=== PATIENT | male | born 1995 | race Caucasian/White ===

== ENCOUNTER 2020-03-23 10:46 | Emergency (ER) | payer MEDICAID ==
[~2020-03-23] VITALS: Ht 172.7 cm; Wt 90.0 kg
[2020-03-23] MEDS ORDERED: LORazepam 1 MG tablet PO ONE ×3 (11:15→20:30)
[2020-03-23 11:34] LABS: BASOPHILS % (AUTO) 0.6 % (0-1); EOSINOPHILS # (AUTO) 0.1 X10'3 (0-0.9); EOSINOPHILS % (AUTO) 1.8 % (0-6); HEMATOCRIT 45.5 % (42.0-52.0); HEMOGLOBIN 15.7 g/dl (14.0-17.9); LYMPHOCYTES # (AUTO) 1.8 X10'3 (1.1-4.8); LYMPHOCYTES % (AUTO) 24.9 % (21-51); MEAN CORPUSCULAR HEMOGLOBIN 29.8 PG (27.0-31.0); MEAN CORPUSCULAR HGB CONC 34.4 g/dL (33.0-36.5); MEAN CORPUSCULAR VOLUME 86.6 FL (78-98); MEAN PLATELET VOLUME 7.7 FL (7.4-10.4); MONOCYTES # (AUTO) 0.4 X10'3 (0-0.9); MONOCYTES % (AUTO) 5.8 % (2-12); NEUTROPHILS # (AUTO) 4.8 X10'3 (1.8-7.7); NEUTROPHILS % (AUTO) 66.9 % (42-75); PLATELET COUNT 250 X10'3 (140-440); RED BLOOD COUNT 5.25 X10'6 (4.70-6.10); RED CELL DISTRIBUTION WIDTH 13.1 % (11.5-14.5); WHITE BLOOD COUNT 7.2 X10'3 (4.5-11.0)
[2020-03-23 11:48] LABS: ALANINE AMINOTRANSFERASE 34 U/L (12-78); ALBUMIN 4.3 G/DL (3.4-5.0); ALBUMIN/GLOBULIN RATIO 1.4 (1.1-1.5); ALKALINE PHOSPHATASE 66 IU/L (46-116); ANION GAP 8 (8-16); ASPARTATE AMINO TRANSFERASE 25 U/L (10-37); BILIRUBIN,TOTAL 0.6 MG/DL (0.1-1.0); BLOOD UREA NITROGEN 26 MG/DL (7-18); BUN/CREATININE RATIO 22.2 (5.4-32.0); CALCIUM 8.8 MG/DL (8.5-10.1); CHLORIDE 107 MMOL/L (99-107); CREATININE 1.17 MG/DL (0.60-1.10); ETHANOL < 0.010 GM/DL (0.0-0.010); GLUCOSE 99 MG/DL (70-104); POTASSIUM 4.2 MMOL/L (3.5-5.1); SODIUM 141 MMOL/L (135-145); TOTAL CARBON DIOXIDE 26.5 MMOL/L (24-32); TOTAL PROTEIN 7.4 G/DL (6.4-8.2); eGFR 75 ML/MIN
[2020-03-23 12:02] LABS: CLARITY,URINE CLEAR (Clear); COLOR,URINE YELLOW (Yellow); GLUCOSE, URINE NEGATIVE (Neg); KETONES,URINE NEGATIVE (Neg); LEUKOCYTE ESTERASE ,URINE NEGATIVE (Neg); NITRITES, URINE NEGATIVE (Neg); OCCULT BLOOD,URINE NEGATIVE (Neg); PROTEIN,URINE NEGATIVE (Neg); UROBILINOGEN,URINE 0.2 E.U/dL (0.2-1.0)
[2020-03-23 12:03] LABS: UA COLLECTION TYPE CLN CATCH MIDSTREAM
[2020-03-23 12:13] LABS: URINE AMPHETAMINE SCREEN NEGATIVE (Neg); URINE BARBITUATE SCREEN NEGATIVE (Neg); URINE BENZODIAZEPINES SCREEN NEGATIVE (Neg); URINE CANNABINOID SCREEN NEGATIVE (Neg); URINE COCAINE SCREEN NEGATIVE (Neg); URINE METHADONE SCREEN NEGATIVE (Neg); URINE OPIATE SCREEN NEGATIVE (Neg); URINE PHENCYCLIDINE SCREEN NEGATIVE (Neg)
--- NOTE | 2020-03-23 13:00 | NUR ---
Patient provided lunch
--- NOTE | 2020-03-23 14:02 | NUR ---
PACKET FAXED TO [facility]
--- NOTE | 2020-03-23 15:33 | NUR ---
Resting with eyes closed
[2020-03-23] MEDS ORDERED: NO HOME MEDS (16:40)
--- NOTE | 2020-03-23 17:22 | NUR ---
Patient seen and interviewed by [facility] Aaron, 2154 written.
--- NOTE | 2020-03-23 18:30 | NUR ---
pt sitting upright in bed no complaints of discomfort . plan of care updated .
--- NOTE | 2020-03-23 19:00 | NUR ---
pt talking with his sun . cheerful
--- NOTE | 2020-03-23 20:10 | NUR ---
Lexis from [facility] requested covid screen and another copy of labs , as what she has is not able to be read.
--- NOTE | 2020-03-23 20:39 | NUR ---
PT MEDICATED WITH 3 MG MELATONIN AND 1 MG ATIVAN FOR REPORTED ANXIETY . PT REPORTS HE NEEDS SOMETHING TO HELP HIM SLEEP AND HE TAKES 3MG OF MELATONIN
[2020-03-23] MEDS ORDERED: Melatonin 3mg tablet PO SCH (21:00)
--- NOTE | 2020-03-23 21:40 | NUR ---
FAXED COVID RESULTS AND LABS REQUESTED TO CLARICE AT [facility] [phone]
--- NOTE | 2020-03-23 21:50 | NUR ---
faxed [facility] as requested by Lexis. at [phone] Ignacio covid results and labs results for further evaluation and placment
--- NOTE | 2020-03-23 22:41 | NUR ---
[facility]
--- NOTE | 2020-03-23 22:50 | NUR ---
pt sleeping supine . resp even and unlabored . pt in the direct line of nursing staff . will continue to monitor and reassess
--- NOTE | 2020-03-24 01:45 | NUR ---
PT SLEEPIN GPEACFULLY IN BED PRONE RESP EVEN AND UNLABORED . PT IN THE DIRECT LINE OF SIGHT OF NURSING STAFF . WILL CONTINUE TO MONITOR AND REASSESS
--- NOTE | 2020-03-24 02:45 | NUR ---
PT SLEEPIN GPEACFULLY IN BED SUPINE RESP EVEN AND UNLABORED . PT IN THE DIRECT LINE OF SIGHT OF NURSING STAFF . WILL CONTINUE TO MONITOR AND REASSESS
--- NOTE | 2020-03-24 04:44 | NUR ---
PT SLEEPING PEACFULLY ON HIS RIFGHT SIDE RESP EVEN AND UNLABORED PT IN THE DIRECT LINE OF SITE OF NURSING STAFF WILL CONTINUE TO MONITOR AND REASSESS NEEDED
--- NOTE | 2020-03-24 06:33 | NUR ---
Assumed care of patient, pt. sleeping in bed at this time, rr even and unlabored.
--- NOTE | 2020-03-24 08:31 | NUR ---
Pt. awoke and ate breakfast, on the telephone at this time. He appears calm and cooperative, no s/s of distress. Recived a phone call from [facility], and gave [id number] report to MINDY Stout. Pt. will be transferred here today once transportation arranged by [facility].
--- NOTE | 2020-03-24 10:30 | NUR ---
Pt. talking on the telephone at this time, he was notified by this residential mortgage underwriter that he will be transferring to [facility] today between 1345 and 1415, he reported understanding. Addendum: 03/24/20 at 1054 by ANNA 1:1 completed at bedside, pt. continues to endorse intermittent S/I but currently does not have a plan. He also reports occasional A/BLANCHARD and paranoid delusions that random others want to hurt him, but denies at this time. Pt. states, "I'm having relationship issues, I was with the same girl for 9 years."
--- NOTE | 2020-03-24 12:30 | NUR ---
Pt. laying in bed talking on the phone at this time, continues to be calm and rr even and unlabored.
--- NOTE | 2020-03-24 13:30 | NUR ---
Pt. transferred to [facility]. Accepting MD is Dr. Farrell. Report given to MINDY Stout. Pt. escorted to transferring van by local hazmat driver and security.
[2020-03-24 13:48] VITALS: BP 117/53
== END 2020-03-24 13:52 ==
LOC: ER 10:48
DX: F32.9 Major depressive disorder, single episode, unspecified (principal); R45.851 Suicidal ideations; Z20.828 Contact with and (suspected) exposure to other viral communicable diseases
CPT/HCPCS: 36415; 80053; 80305; 80320; 81003; 85025; 87635; 99285; C9803